=== PATIENT | male | born 1980 | race Two or more races ===

== ENCOUNTER 2019-01-14 07:32 | Emergency (ER) | payer SELFPAY ==
[2019-01-14 07:40] VITALS: BP 123/74; PULSE 84; TEMP 98.1; BMI 26.1
[2019-01-14] MEDS ORDERED: DIPHTH,PERTUSS(ACELL),TET 0.5 ML DISP.SYRIN IM ONE ×2 (07:43→07:50)
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
[2019-01-14] MEDS ORDERED: ACETAMINOPHEN 325 MG TABLET (FP) PO ONE (08:04)
[2019-01-14] MEDS ORDERED: ACETAMINOPHEN 325 MG TABLET (FP) ONE (08:16)
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
== END 2019-01-14 12:06 | disposition home or self-care (01) ==
LOC: JER 07:32
PROC: 3E0234Z Introduction of Serum, Toxoid and Vaccine into Muscle, Percutaneous Approach (ICD-10-PCS; principal; 2019-01-14)
DX: S01.112A Laceration without foreign body of left eyelid and periocular area, initial encounter (principal); Y93.89 Activity, other specified; Y92.488 Other paved roadways as the place of occurrence of the external cause; Y99.8 Other external cause status; Y04.2XXA Assault by strike against or bumped into by another person, initial encounter; W22.09XA Striking against other stationary object, initial encounter
CPT/HCPCS: 70450-TC; 70486-TC; 71046-TC-FY; 72100-TC-FY; 72125-TC; 90715; 99282-25

== ENCOUNTER 2019-01-24 11:41 | Emergency (ER) | payer SELFPAY ==
[2019-01-24 11:49] VITALS: BP 113/72; PULSE 87; TEMP 97.2; BMI 26.4
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
== END 2019-01-24 12:17 | disposition home or self-care (01) ==
LOC: JERFT 11:41
DX: Z48.02 Encounter for removal of sutures (principal)
CPT/HCPCS: 99281-25